=== PATIENT | female | born 1950 | race Caucasian/White ===

== ENCOUNTER 2016-07-03 07:03 | Day surgery (SDC) | payer MEDICARE, OTHER ==
--- NOTE | ~2016-07-03 | EGD ---
EGD REPORT [facility] [address] [address] NAME: SHANA BRANHAM : [birth year] STATUS : [place] [facility] [place] PAT#: [id number] AGE: 66 ADM/REG DATE : 07/03/16 MR#: [id number] REPORT SERV DATE: 07/03/16 DICTATED BY: JAIME KOCH DATE: 07/03/16 REPORT STATUS : Draft TRANSCRIBED BY: [facility] DATE: 07/03/16 [facility] Patient Name: Shana Branham Date of : 1950 Attending MD: JAIME KOCH MD Procedure Date No Time: 07/03/2016 Procedure: Colonoscopy Indications: Chronic diarrhea, Follow-up of colitis Medicines: Propofol per Anesthesia Complications: No immediate complications. Procedure: Pre-Anesthesia Assessment: - ASA Grade Assessment: III - A patient with severe systemic disease. After I obtained informed consent, the scope was passed under direct vision. Throughout the procedure, the patient's blood pressure, pulse, and oxygen saturations were monitored continuously. The CF [id number] was introduced through the anus and advanced to the cecum, identified by appendiceal orifice and ileocecal valve. The ileocecal valve, appendiceal orifice and terminal ileum were photographed. The entire colon was examined. Findings: The perianal and digital rectal examinations were normal. Many medium-mouthed diverticula were found in the recto-sigmoid colon, in the sigmoid colon and in the descending colon. Internal hemorrhoids were found during retroflexion and were Grade I (internal hemorrhoids that do not prolapse). The rest of the colon was normal Random biopsies of the colon were obtained to rule out dysplasia. Impression: - Diverticulosis in the recto-sigmoid colon, in the sigmoid colon and in the descending colon. - Internal hemorrhoids. Recommendation: - Discharge patient to home (ambulatory). - Return to nurse practitioner in 3 weeks. Procedure Code(s): --- Professional --- 39510, Colonoscopy, flexible, proximal to splenic flexure; diagnostic, with or without collection of specimen(s) by brushing or washing, with or without colon decompression (separate procedure) Diagnosis Code(s): --- Professional --- EGD REPORT [address] [place]. [address] NAME: SHANA BRANHAM : [birth year] STATUS : [place] [facility] [place] PAT#: [id number] AGE: 66 ADM/REG DATE : 07/03/16 MR#: [id number] REPORT SERV DATE: 07/03/16 DICTATED BY: JAIME KOCH. DATE: 07/03/16 REPORT STATUS : Draft TRANSCRIBED BY: [employer] DATE: 07/03/16 K64.0, First degree hemorrhoids K57.30, Diverticulosis of large intestine without perforation or abscess without bleeding K52.9, Noninfective gastroenteritis and colitis, unspecified CPT copyright 2013 [employer]. All rights reserved. The codes documented in this report are preliminary and upon shot packer review may be revised to meet current compliance requirements. Jaime Koch MD JAIME KOCH MD 07/03/2016 8:43 AM This report has been signed electronically. Number of Addenda: 0 Note Initiated On: 07/03/2016 8:20 AM Scope Withdrawal Time 0 hours 6 minutes [address] [place], [place] [address] [address]
--- NOTE | ~2016-07-03 | EGD ---
EGD REPORT [facility] [address] [address] NAME: SHANA BRANHAM : [birth year] STATUS : REG [facility] [place] PAT#: [id number] AGE: 66 ADM/REG DATE : 07/03/16 MR#: [id number] REPORT SERV DATE: 07/03/16 DICTATED BY: JAIME KOCH DATE: 07/03/16 REPORT STATUS : Draft [facility]: [facility] DATE: 07/03/16 [facility] Patient Name: Shana Branham Date of : 1950 Attending MD: JAIME KOCH MD Procedure Date No Time: 07/03/2016 Procedure: Colonoscopy Indications: Chronic diarrhea, Follow-up of colitis Medicines: Propofol per Anesthesia Complications: No immediate complications. Procedure: Pre-Anesthesia Assessment: - ASA Grade Assessment: III - A patient with severe systemic disease. After I obtained informed consent, the scope was passed under direct vision. Throughout the procedure, the patient's blood pressure, pulse, and oxygen saturations were monitored continuously. The CF [id number] was introduced through the anus and advanced to the cecum, identified by appendiceal orifice and ileocecal valve. The ileocecal valve, appendiceal orifice and terminal ileum were photographed. The entire colon was examined. Findings: The perianal and digital rectal examinations were normal. Many medium-mouthed diverticula were found in the recto-sigmoid colon, in the sigmoid colon and in the descending colon. Internal hemorrhoids were found during retroflexion and were Grade I (internal hemorrhoids that do not prolapse). The rest of the colon was normal Random biopsies of the colon were obtained to rule out dysplasia. Impression: - Diverticulosis in the recto-sigmoid colon, in the sigmoid colon and in the descending colon. - Internal hemorrhoids. Recommendation: - Discharge patient to home (ambulatory). - Return to nurse practitioner in 3 weeks. Procedure Code(s): --- Professional --- 17908, Colonoscopy, flexible, proximal to splenic flexure; diagnostic, with or without collection of specimen(s) by brushing or washing, with or without colon decompression (separate procedure) Diagnosis Code(s): --- Professional --- EGD REPORT [address] [place]. [address] NAME: SHANA BRANHAM : [birth year] STATUS : REG [facility] [place] PAT#: [id number] AGE: 66 ADM/REG DATE : 07/03/16 MR#: [id number] REPORT SERV DATE: 07/03/16 DICTATED BY: JAIME KOCH. DATE: 07/03/16 REPORT STATUS : Draft TRANSCRIBED BY: [employer] DATE: 07/03/16 K64.0, First degree hemorrhoids K57.30, Diverticulosis of large intestine without perforation or abscess without bleeding K52.9, Noninfective gastroenteritis and colitis, unspecified CPT copyright 2013 [employer]. All rights reserved. The codes documented in this report are preliminary and upon chemical dependency attendant review may be revised to meet current compliance requirements. Jaime Koch MD JAIME KOCH MD 07/03/2016 8:43 AM This report has been signed electronically. Number of Addenda: 0 Note Initiated On: 07/03/2016 8:20 AM Scope Withdrawal Time 0 hours 6 minutes [address] [place], [place] [address] [address]
--- NOTE | ~2016-07-03 | EGD ---
EGD REPORT [facility] [address] [address] NAME: SHANA BRANHAM : [birth year] STATUS : REG [facility]#: [id number] AGE: 66 ADM/REG DATE : 07/03/16 MR#: [id number] REPORT SERV DATE: 07/03/16 DICTATED BY: JAIME KOCH DATE: 07/03/16 REPORT STATUS : Draft [facility]ANSCRIBED BY: [facility] DATE: 07/03/16 End[facility] Patient Name: Shana Branham Date of : 1950 Attending MD: JAIME KOCH MD Procedure Date No Time: 07/03/2016 Procedure: Upper GI endoscopy Indications: Dysphagia Referring MD: RANDI MANNING Medicines: Propofol per Anesthesia Complications: No immediate complications. Procedure: Pre-Anesthesia Assessment: - ASA Grade Assessment: III - A patient with severe systemic disease. After obtaining informed consent, the endoscope was passed under direct vision. Throughout the procedure, the patient's blood pressure, pulse, and oxygen saturations were monitored continuously. The GIF [id number] was introduced through the mouth, and advanced to the second part of duodenum. The upper GI endoscopy was accomplished without difficulty. The patient tolerated the procedure well. Findings: A mild Schatzki ring (acquired) was found at the lower esophageal sphincter. A guidewire was placed and the scope was withdrawn. Dilation was performed with a Savary dilator with no resistance at 54 Fr. A small hiatus hernia was present. Multiple 5 mm sessile polyps with no bleeding and no stigmata of recent bleeding were found in the stomach. Biopsies were taken with a cold forceps for histology. Diffuse mild inflammation characterized by erosions and erythema was found in the stomach. The examined duodenum was normal. Impression: - Mild Schatzki ring. Dilated. - Hiatus hernia. - Multiple gastric polyps. Biopsied. - Chronic gastritis. - Normal examined duodenum. Recommendation: - Discharge patient to home (ambulatory). - Return to nurse practitioner in 3 weeks. Procedure Code(s): --- Professional --- EGD REPORT [address] [address] NAME: SHANA BRANHAM : [birth year] STATUS : REG [facility]#: [id number] AGE: 66 ADM/REG DATE : 07/03/16 MR#: [id number] REPORT SERV DATE: 07/03/16 DICTATED BY: JAIME KOCH. DATE: 07/03/16 REPORT STATUS : Draft TRANSCRIBED BY: [employer] DATE: 07/03/16 40243, Esophagogastroduodenoscopy, flexible, transoral; with insertion of guide wire followed by passage of dilator(s) through esophagus over guide wire 35215, Esophagogastroduodenoscopy, flexible, transoral; with biopsy, single or multiple Diagnosis Code(s): --- Professional --- K22.2, Esophageal obstruction K44.9, Diaphragmatic hernia without obstruction or gangrene K31.7, Polyp of stomach and duodenum K29.50, Unspecified chronic gastritis without bleeding R13.10, Dysphagia, unspecified CPT copyright 2013 [employer]. All rights reserved. The codes documented in this report are preliminary and upon netbackup engineer review may be revised to meet current compliance requirements. Jaime Koch MD JAIME KOCH MD 07/03/2016 8:31 AM This report has been signed electronically. Number of Addenda: 0 Note Initiated On: 07/03/2016 8:21 AM Scope Withdrawal Time 0 hours 0 minutes 0 seconds [address] [address]
[~2016-07-03 07:03] MED LIST: AVAPRO300 MG PO; BUSPAR15 M1 PO; FISH OIL1200 MG PO; HYOSCYAMINE PO; MULTIPLE VIT PO; NORV5 PO; PREV30 PO; ULTRAM50 PO; VITAMIN D1000 UNI1 PO
== END 2016-07-03 23:59 | disposition home health service (06) ==
LOC: DMU 07:03
PROVIDERS: Internal Medicine Gastroenterology
PROC: 0D738ZZ Dilation of Lower Esophagus, Via Natural or Artificial Opening Endoscopic (ICD-10-PCS; principal; 2016-07-03 09:00)
PROC: 0DB68ZX Excision of Stomach, Via Natural or Artificial Opening Endoscopic, Diagnostic (ICD-10-PCS; 2016-07-03 09:00)
PROC: 0DJD8ZZ Inspection of Lower Intestinal Tract, Via Natural or Artificial Opening Endoscopic (ICD-10-PCS; 2016-07-03 09:00)
DX: K31.7 Polyp of stomach and duodenum (principal); K22.2 Esophageal obstruction; K44.9 Diaphragmatic hernia without obstruction or gangrene; K29.50 Unspecified chronic gastritis without bleeding; K64.0 First degree hemorrhoids; K57.30 Diverticulosis of large intestine without perforation or abscess without bleeding; I10 Essential (primary) hypertension; E78.5 Hyperlipidemia, unspecified; K21.9 Gastro-esophageal reflux disease without esophagitis; Z79.899 Other long term (current) drug therapy; Z98.51 Tubal ligation status; Z98.890 Other specified postprocedural states; E78.00 Pure hypercholesterolemia, unspecified; F41.9 Anxiety disorder, unspecified
CPT/HCPCS: 88305